=== PATIENT | male | born 1930 | race Caucasian/White ===

== ENCOUNTER 2017-03-17 19:56 | Outpatient (CLI) | payer MEDICARE, OTHER | END 2017-03-17 19:57 | disposition home or self-care (01) | DX: M54.5 Low back pain (principal); E03.9 Hypothyroidism, unspecified; E79.0 Hyperuricemia without signs of inflammatory arthritis and tophaceous disease; E23.0 Hypopituitarism; I10 Essential (primary) hypertension ==

== ENCOUNTER 2017-07-14 11:38 | Emergency (ER) | payer MEDICARE, OTHER ==
--- NOTE | 2017-07-14 12:43 | ED Physician Documentation ---
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 Last night without specific trauma developed severe pain and he points to the greater trochanter of the right hip as the source of the pain and when going up some stairs today developed a shooting pain down to the medial part of the thigh just above the knee and he has a lot of pain with leg lifting. There is no weakness, numbness, or tingling, no back pain per se. No fevers or urinary complaints.) Review of Systems Constitutional: denies: Fever, Chills Nose: denies: Rhinorrhea / runny nose, Congestion Cardiac: denies: Chest pain / pressure, Palpitations Respiratory: denies: Dyspnea, Cough GI: denies: Abdominal Pain PD PAST MEDICAL HISTORY - Past Medical History Cardiovascular: None Respiratory: None Neuro: Other Endocrine/Autoimmune: None, Other GI: GERD : Benign prostate hypertrophy HEENT: None Psych: None Musculoskeletal: Gout Derm: None Other Past Medical History: Pt has some pituitary deficiency - Past Surgical History Past Surgical History: Yes Ortho: Knee replacement, Spine surgery - Present Medications Home Medications: Ambulatory Orders Medication Instructions Recorded Confirmed HYDROcod/ACETAM 5/325 [[place] 5/325] 1 - 2 ea PO Q6H PRN #15 tablet 07/14/17 - Allergies Allergies/Adverse Reactions: Allergies Allergy/AdvReac Type Severity Reaction Status Date / Time Penicillins Allergy Edema Verified 07/14/17 11:58 - Social History Does the pt smoke?: No Smoking Status: Never smoker Does the pt drink ETOH?: Yes Does the pt have substance abuse?: No - Immunizations Immunizations are current?: Yes PD ED PE NORMAL - Vitals Vital signs reviewed: Yes - General General: Alert and oriented X 3, No acute distress - Abdomen Abdomen: Soft, Non tender - Back Back: Other (Small surgical incision from a L4-L5 laminectomy he says that was about 20-30 years ago. No spinal tenderness. The patient has equal and normal Achilles and patellar reflexes bilaterally. Normal sensation in all areas of the legs. Patient denies saddle anesthesia. Normal strength in flexion- extension at the ankles, knees, and flexion of the hips.) - Extremities Extremities: Other (He has some tenderness of the right thigh but none of the greater trochanter. He does not have any pain with internal or external rotation of the right hip. There is no rash consistent with shingles. He has a negative straight leg raise but has a lot of pain when actively lifting the right leg.) - Neuro Neuro: Alert and oriented X 3, Normal speech - Psych Psych: Normal mood, Normal affect Results - Vitals Vitals: Vital Signs - 24 hr 07/14/17 11:55 Temperature 36.4 C L Heart Rate 65 Respiratory 18 Rate Blood Pressure 128/75 O2 Saturation 99 Oxygen O2 Source Room air - Rads (name of study) Xrs R hip/femur Radiology: EMP read contemporaneously (Some mild degenerative changes of the right hip without acute disease) PD MEDICAL DECISION MAKING - ED course ED course: 87-year-old gentleman with chronic leg length discrepancy presents with more acute right hip pain without injury, seems tenderness on exam. There is no evidence of infection. X-rays negative except for some degenerative changes. Departure - Departure Disposition: 01 Home, Self Care Clinical Impression: Strain of hip Qualifiers: Encounter type: initial encounter Laterality: right Qualified Code(s): S76.011A - Strain of muscle, fascia and tendon of right hip, initial encounter Condition: Good Record reviewed to determine appropriate education?: Yes Instructions: ED Sprain Hip Follow-Up: [facility] [Provider Group] - Within 1 week Prescriptions: HYDROcod/ACETAM 5/325 [[place] 5/325] 1 - 2 ea PO Q6H PRN #15 tablet PRN Reason: Pain Comments: Do not drink or drive while taking narcotic pain medication. Note that many narcotic pain relievers also contain Tylenol/acetaminophen. Please ensure that your total dose of acetaminophen from all sources does not exceed 3 g (3000 mg) per day. You may get constipated while on this medication. Take a stool softener such as Colace twice a day while you are on it. Also add an [id number] laxative such as senna or MiraLAX on any day that you do not have a bowel movement. If you received a narcotic pain medication or sedative while in the emergency department, do not drive for the next 24 hours.
--- NOTE | 2017-07-14 14:52 | XRAY Report ---
EXAM: RIGHT HIP AND PELVIS RADIOGRAPHY EXAM DATE: 07/14/2017 02:37 PM. HISTORY: Atraumatic leg pain. COMPARISONS: None. TECHNIQUE: 1 view of the pelvis and 1 view of the hip. FINDINGS: Bones: Normal. No fracture or bone lesion. Joints: Mild bilateral superior hip joint space narrowing. Unremarkable SI joints and pubic symphysis . Degenerative changes in lower lumbar spine. Soft Tissues: Unremarkable. IMPRESSION: Mild degenerative changes. [facility] Referring Provider Line: [phone] SITE ID: [id number]
--- NOTE | 2017-07-14 14:54 | XRAY Preliminary Report ---
Exam: XR Femur 2V RT IMPRESSION: No acute disease. [facility] SITE ID: [id number]
--- NOTE | 2017-07-14 14:56 | XRAY Report ---
EXAM: RIGHT FEMUR RADIOGRAPHY EXAM DATE: 07/14/2017 02:37 PM. CLINICAL HISTORY: Atraumatic leg pain. COMPARISON: None. TECHNIQUE: 2 views. FINDINGS: Bones: Osteopenia. No definite fracture or other bone lesion. Joints: Minimal degenerative changes in the hip. Right total knee prosthesis in anatomic alignment. N o abnormal lucency associated with the prosthesis. Soft Tissues: Unremarkable. IMPRESSION: No acute disease. [facility] Referring Provider Line: [phone] SITE ID: [id number]
[2017-07-14 15:09] VITALS: BP 119/71
== END 2017-07-14 15:08 | disposition home or self-care (01) ==
LOC: ED 11:38
DX: S76.011A Strain of muscle, fascia and tendon of right hip, initial encounter (principal); X58.XXXA Exposure to other specified factors, initial encounter; M21.70 Unequal limb length (acquired), unspecified site; K21.9 Gastro-esophageal reflux disease without esophagitis; M10.9 Gout, unspecified
CPT/HCPCS: 99283

== ENCOUNTER 2017-07-19 23:47 | Outpatient (CLI) | payer MEDICARE, OTHER | END 2017-07-19 23:48 | disposition short-term general hospital (02) | LOC: EMS 23:47 | PROVIDERS: ATTEND Surgery | DX: M79.89 Other specified soft tissue disorders (principal) | CPT/HCPCS: A0425; A0429; A0888 ==

== ENCOUNTER 2017-08-02 09:51 | Outpatient (CLI) | payer MEDICARE, OTHER ==
[2017-08-02 10:20] LABS: BASOPHILS % (AUTO) 0.7 %; EOSINOPHILS # (AUTO) 0.1 10^3/uL (0.0-0.7); EOSINOPHILS % (AUTO) 1.7 %; HCT - HEMATOCRIT 45.5 % (42.0-52.0); HGB - HEMOGLOBIN 15.4 g/dL (14.0-18.0); LYMPHOCYTES # (AUTO) 1.1 10^3/uL (1.5-3.5); LYMPHOCYTES % (AUTO) 23.1 %; MEAN CORPUSCULAR HEMOGLOBIN 33.5 pg (27.0-31.0); MEAN CORPUSCULAR HGB CONC 33.8 g/dL (32.0-36.0); MEAN CORPUSCULAR VOLUME 99.1 fL (80.0-94.0); MEAN PLATELET VOLUME 9.2 fL (7.4-11.4); MONOCYTES # (AUTO) 0.6 10^3/uL (0.0-1.0); MONOCYTES % (AUTO) 12.2 %; NEUTROPHILS # (AUTO) 3.1 10^3/uL (1.5-6.6); NEUTROPHILS % (AUTO) 62.3 %; RED BLOOD COUNT 4.59 10^6/uL (4.70-6.10); RED CELL DISTRIBUTION WIDTH 13.9 % (12.0-15.0); UNCORRECTED WHITE BLOOD COUNT 4.9 x10^3/uL; WHITE BLOOD COUNT 4.9 x10^3/uL (4.8-10.8)
[2017-08-02 10:46] LABS: PLATELET ESTIMATE, MANUAL NORMAL (130-450,000) (NORMAL); PLATELET MORPHOLOGY 1+ GIANT PLATELETS (NORMAL)
== END 2017-08-02 09:52 | disposition home or self-care (01) ==
LOC: LAB 09:51
PROVIDERS: ATTEND Podiatrist
DX: M10.072 Idiopathic gout, left ankle and foot (principal); M79.672 Pain in left foot
CPT/HCPCS: 36415; 84550; 85025

== ENCOUNTER 2017-08-20 12:09 | Outpatient (CLI) | payer MEDICARE, OTHER | END 2017-08-20 12:10 | disposition home or self-care (01) | LOC: LAB.WCP 12:09 | PROVIDERS: ATTEND Internal Medicine Rheumatology | DX: M79.672 Pain in left foot (principal); M10.9 Gout, unspecified | CPT/HCPCS: 36415; 84550; 85651; 86200; 86430 ==

== ENCOUNTER 2017-12-25 09:35 | Outpatient (CLI) | payer MEDICARE, OTHER ==
[2017-12-25 13:28] LABS: BASOPHILS % (AUTO) 0.7 %; EOSINOPHILS # (AUTO) 0.2 10^3/uL (0.0-0.7); EOSINOPHILS % (AUTO) 2.6 %; HGB - HEMOGLOBIN 16.6 g/dL (14.0-18.0); LYMPHOCYTES # (AUTO) 1.6 10^3/uL (1.5-3.5); LYMPHOCYTES % (AUTO) 28.1 %; MEAN CORPUSCULAR HEMOGLOBIN 33.5 pg (27.0-31.0); MEAN CORPUSCULAR HGB CONC 33.9 g/dL (32.0-36.0); MEAN CORPUSCULAR VOLUME 98.9 fL (80.0-94.0); MEAN PLATELET VOLUME 10.3 fL (7.4-11.4); MONOCYTES # (AUTO) 0.7 10^3/uL (0.0-1.0); MONOCYTES % (AUTO) 12.8 %; NEUTROPHILS # (AUTO) 3.3 10^3/uL (1.5-6.6); NEUTROPHILS % (AUTO) 55.8 %; PLT - PLATELET COUNT 139 10^3/uL (130-450); RED BLOOD COUNT 4.95 10^6/uL (4.70-6.10); RED CELL DISTRIBUTION WIDTH 14.5 % (12.0-15.0); WHITE BLOOD COUNT 5.8 x10^3/uL (4.8-10.8)
[2017-12-25 13:32] LABS: ALBUMIN 3.7 g/dL (3.2-5.5); ALBUMIN/GLOBULIN RATIO 1.2 (1.0-2.2); ALKALINE PHOSPHATASE 58 IU/L (42-121); ALT ALANINE AMINOTRANSFERASE 26 IU/L (10-60); AST ASPARTATE AMINOTRANSFERASE 30 IU/L (10-42); BILIRUBIN,TOTAL 1.1 mg/dL (0.2-1.0); BUN - BLOOD UREA NITROGEN 16 mg/dL (6-20); CALCIUM 8.6 mg/dL (8.5-10.3); CARBON DIOXIDE - CO2 29 mmol/L (21-32); CHLORIDE 103 mmol/L (101-111); CREATININE 1.2 mg/dL (0.6-1.2); GFR - MDRD 57 (>89); GLUCOSE 89 mg/dL (70-100); SODIUM 140 mmol/L (135-145); TOTAL PROTEIN 6.7 g/dL (6.7-8.2)
[2017-12-25 13:58] LABS: PLATELET MORPHOLOGY RARE GIANT PLATELETS (NORMAL)
[2017-12-25 14:33] LABS: THYROID STIMULATING HORMONE < 0.08 uIU/mL (0.34-5.60)
[2017-12-25 14:38] LABS: PROLACTIN 0.59 ng/mL
[2017-12-25 15:18] LABS: FREE T4 (FREE THYROXINE) 1.45 ng/dL (0.58-1.64)
== END 2017-12-25 09:36 | disposition home or self-care (01) ==
LOC: LAB.WCP 09:35
PROVIDERS: ATTEND Family Medicine
DX: E23.0 Hypopituitarism (principal); E03.9 Hypothyroidism, unspecified
CPT/HCPCS: 36415; 80053; 84146; 84403; 84439; 84443; 85025

== ENCOUNTER 2018-05-08 09:37 | Outpatient (CLI) | payer MEDICARE, OTHER ==
[2018-05-08 13:50] LABS: ALBUMIN 2.9 g/dL (3.2-5.5); ALBUMIN/GLOBULIN RATIO 0.9 (1.0-2.2); BILIRUBIN,TOTAL 1.2 mg/dL (0.2-1.0); CALCIUM 8.1 mg/dL (8.5-10.3); CREATININE 1.3 mg/dL (0.6-1.2); TOTAL PROTEIN 6.3 g/dL (6.7-8.2)
== END 2018-05-08 09:38 | disposition home or self-care (01) ==
LOC: LAB.WCP 09:37
PROVIDERS: ATTEND Family Medicine
DX: E23.0 Hypopituitarism (principal); E22.1 Hyperprolactinemia
CPT/HCPCS: 36415; 80053

== ENCOUNTER 2018-07-08 10:08 | Outpatient (CLI) | payer MEDICARE, OTHER ==
[2018-07-08 12:23] LABS: BILIRUBIN,URINE NEGATIVE (NEGATIVE); GLUCOSE, URINE (UA) NEGATIVE (NEGATIVE); KETONES,URINE (UA) NEGATIVE (NEGATIVE); LEUKOCYTE ESTERASE, URINE NEGATIVE (NEGATIVE); NITRITE,URINE NEGATIVE (NEGATIVE); OCCULT BLOOD,URINE NEGATIVE (NEGATIVE); PROTEIN,URINE NEGATIVE (NEGATIVE); UROBILINOGEN,URINE 0.2 (NORMAL) E.U./dL (NORMAL)
[2018-07-08 12:27] LABS: BASOPHILS % (AUTO) 0.7 %; EOSINOPHILS % (AUTO) 0.8 %; HGB - HEMOGLOBIN 16.5 g/dL (14.0-18.0); LYMPHOCYTES % (AUTO) 15.5 %; MEAN CORPUSCULAR HEMOGLOBIN 34.5 pg (27.0-31.0); MEAN CORPUSCULAR HGB CONC 33.7 g/dL (32.0-36.0); MEAN CORPUSCULAR VOLUME 102.4 fL (80.0-94.0); MEAN PLATELET VOLUME 9.7 fL (7.4-11.4); MONOCYTES # (AUTO) 0.7 10^3/uL (0.0-1.0); MONOCYTES % (AUTO) 10.3 %; NEUTROPHILS # (AUTO) 4.7 10^3/uL (1.5-6.6); NEUTROPHILS % (AUTO) 72.7 %; PLT - PLATELET COUNT 174 10^3/uL (130-450); RED BLOOD COUNT 4.78 10^6/uL (4.70-6.10); RED CELL DISTRIBUTION WIDTH 14.8 % (12.0-15.0); WHITE BLOOD COUNT 6.4 x10^3/uL (4.8-10.8)
[2018-07-08 12:29] LABS: CREATININE,URINE 35.8 mg/dL; MICROALBUMIN,URINE 0.5 mg/dL (0-300.0)
[2018-07-08 12:36] LABS: CLARITY,URINE CLEAR (CLEAR)
[2018-07-08 12:59] LABS: BACTERIA,URINE None Seen /HPF (None Seen); RBC,URINE 0-5 /HPF (0-5); SQUAMOUS EPITHELIAL CELL,UR NONE SEEN (<= Few)
[2018-07-08 13:14] LABS: ALBUMIN 3.3 g/dL (3.2-5.5); ALKALINE PHOSPHATASE 70 IU/L (42-121); ALT ALANINE AMINOTRANSFERASE 22 IU/L (10-60); AST ASPARTATE AMINOTRANSFERASE 29 IU/L (10-42); BILIRUBIN,TOTAL 1.6 mg/dL (0.2-1.0); BUN - BLOOD UREA NITROGEN 17 mg/dL (6-20); CALCIUM 8.7 mg/dL (8.5-10.3); CARBON DIOXIDE - CO2 27 mmol/L (21-32); CHLORIDE 104 mmol/L (101-111); CHOL/HDL RATIO 2.5 (<5.0); CHOLESTEROL 104 mg/dL; CREATININE 1.3 mg/dL (0.6-1.2); GFR - MDRD 52 (>89); GLUCOSE 92 mg/dL (70-100); HDL CHOLESTEROL 41 mg/dL; LDL CHOLESTEROL,CALCULATED 54 mg/dL; LDL/HDL RATIO 1.3 (<3.6); SODIUM 141 mmol/L (135-145); TOTAL PROTEIN 6.5 g/dL (6.7-8.2); VLDL CHOLESTEROL 9 mg/dL
[2018-07-08 13:24] LABS: FREE T4 (FREE THYROXINE) 1.25 ng/dL (0.58-1.64)
[2018-07-08 13:27] LABS: PROLACTIN 7.57 ng/mL
[2018-07-08 14:47] LABS: PLATELET ESTIMATE, MANUAL NORMAL (130-450,000) (NORMAL); RBC MORPHOLOGY (MULTIPLE) NORMAL APPEARANCE (NORMAL)
== END 2018-07-08 10:09 | disposition home or self-care (01) ==
LOC: LAB.WCP 10:08
PROVIDERS: ATTEND Specialist
DX: E03.8 Other specified hypothyroidism (principal); E83.51 Hypocalcemia; R94.4 Abnormal results of kidney function studies; E22.1 Hyperprolactinemia; E23.0 Hypopituitarism
CPT/HCPCS: 36415; 80053; 80061; 81001; 81599; 82043; 82306; 82330; 82570; 83721; 83970; 84146; 84439; 85025; 87086

== ENCOUNTER 2018-07-31 13:50 | Outpatient (CLI) | payer MEDICARE, OTHER ==
[2018-07-31 18:58] LABS: BASOPHILS % (AUTO) 0.7 %; EOSINOPHILS % (AUTO) 0.2 %; HGB - HEMOGLOBIN 16.7 g/dL (14.0-18.0); LYMPHOCYTES # (AUTO) 0.6 10^3/uL (1.5-3.5); LYMPHOCYTES % (AUTO) 8.6 %; MEAN CORPUSCULAR HEMOGLOBIN 34.3 pg (27.0-31.0); MEAN CORPUSCULAR HGB CONC 33.6 g/dL (32.0-36.0); MEAN CORPUSCULAR VOLUME 101.9 fL (80.0-94.0); MONOCYTES # (AUTO) 0.5 10^3/uL (0.0-1.0); MONOCYTES % (AUTO) 6.7 %; NEUTROPHILS # (AUTO) 5.9 10^3/uL (1.5-6.6); NEUTROPHILS % (AUTO) 83.8 %; PLT - PLATELET COUNT 143 10^3/uL (130-450); RED BLOOD COUNT 4.86 10^6/uL (4.70-6.10); RED CELL DISTRIBUTION WIDTH 14.2 % (12.0-15.0); WHITE BLOOD COUNT 7.1 x10^3/uL (4.8-10.8)
[2018-07-31 19:03] LABS: ALBUMIN 3.6 g/dL (3.2-5.5); ALBUMIN/GLOBULIN RATIO 1.1 (1.0-2.2); ALKALINE PHOSPHATASE 81 IU/L (42-121); ALT ALANINE AMINOTRANSFERASE 19 IU/L (10-60); AST ASPARTATE AMINOTRANSFERASE 23 IU/L (10-42); BILIRUBIN,TOTAL 1.2 mg/dL (0.2-1.0); BUN - BLOOD UREA NITROGEN 21 mg/dL (6-20); CALCIUM 8.2 mg/dL (8.5-10.3); CARBON DIOXIDE - CO2 26 mmol/L (21-32); CHLORIDE 103 mmol/L (101-111); CREATININE 1.2 mg/dL (0.6-1.2); GFR - MDRD 57 (>89); GLUCOSE 112 mg/dL (70-100); SODIUM 134 mmol/L (135-145); TOTAL PROTEIN 6.8 g/dL (6.7-8.2); URIC ACID 3.7 mg/dL (2.6-7.2)
[2018-07-31 19:04] LABS: CRP - C-REACTIVE PROTEIN < 1.0 mg/dL (0-1.0)
[2018-07-31 19:28] LABS: PLATELET ESTIMATE, MANUAL NORMAL (130-450,000) (NORMAL); PLATELET MORPHOLOGY 1+ GIANT PLATELETS (NORMAL); RBC MORPHOLOGY (MULTIPLE) NORMAL APPEARANCE (NORMAL)
== END 2018-07-31 13:51 | disposition home or self-care (01) ==
LOC: LAB.WCP 13:50
PROVIDERS: ATTEND Family Medicine
DX: M10.9 Gout, unspecified (principal)
CPT/HCPCS: 36415; 80053; 84550; 85025; 85651; 86140

== ENCOUNTER 2018-08-21 13:42 | Outpatient (CLI) | payer MEDICARE, OTHER ==
[2018-08-21 19:12] LABS: RHEUMATOID FACTOR NEGATIVE (Negative)
[2018-08-24 18:31] LABS: ANA SCREEN NEGATIVE (NEGATIVE)
== END 2018-08-21 13:43 | disposition home or self-care (01) ==
LOC: LAB.WCP 13:42
PROVIDERS: ATTEND Internal Medicine Rheumatology
DX: M25.50 Pain in unspecified joint (principal)
CPT/HCPCS: 36415; 84550; 85651; 86038; 86200; 86430

== ENCOUNTER 2018-09-08 12:32 | Outpatient (CLI) | payer MEDICARE, OTHER ==
[2018-09-08 19:14] LABS: BASOPHILS % (AUTO) 0.3 %; HGB - HEMOGLOBIN 18.2 g/dL (14.0-18.0); LYMPHOCYTES # (AUTO) 0.6 10^3/uL (1.5-3.5); LYMPHOCYTES % (AUTO) 6.4 %; MEAN CORPUSCULAR HEMOGLOBIN 33.9 pg (27.0-31.0); MEAN CORPUSCULAR HGB CONC 32.7 g/dL (32.0-36.0); MEAN CORPUSCULAR VOLUME 103.8 fL (80.0-94.0); MEAN PLATELET VOLUME 11.5 fL (7.4-11.4); MONOCYTES # (AUTO) 0.8 10^3/uL (0.0-1.0); MONOCYTES % (AUTO) 8.4 %; NEUTROPHILS # (AUTO) 8.4 10^3/uL (1.5-6.6); NEUTROPHILS % (AUTO) 84.9 %; PLT - PLATELET COUNT 151 10^3/uL (130-450); RED BLOOD COUNT 5.36 10^6/uL (4.70-6.10); RED CELL DISTRIBUTION WIDTH 16.1 % (12.0-15.0); WHITE BLOOD COUNT 9.9 x10^3/uL (4.8-10.8)
[2018-09-08 19:21] LABS: ALBUMIN 3.8 g/dL (3.2-5.5); ALBUMIN/GLOBULIN RATIO 1.3 (1.0-2.2); BILIRUBIN,TOTAL 1.9 mg/dL (0.2-1.0); CALCIUM 8.5 mg/dL (8.5-10.3); CREATININE 1.4 mg/dL (0.6-1.2); TOTAL PROTEIN 6.8 g/dL (6.7-8.2)
[2018-09-08 19:30] LABS: FREE T4 (FREE THYROXINE) 1.08 ng/dL (0.58-1.64)
[2018-09-08 19:32] LABS: PROLACTIN 5.63 ng/mL
== END 2018-09-08 12:33 | disposition home or self-care (01) ==
LOC: LAB.WCP 12:32
PROVIDERS: ATTEND Specialist
DX: E23.0 Hypopituitarism (principal); E22.1 Hyperprolactinemia; R94.4 Abnormal results of kidney function studies
CPT/HCPCS: 36415; 80053; 81599; 84146; 84305; 84403; 84439; 85025

== ENCOUNTER 2018-10-28 10:30 | Outpatient (CLI) | payer MEDICARE, OTHER ==
[2018-10-28 20:00] LABS: BASOPHILS % (AUTO) 0.6 %; EOSINOPHILS # (AUTO) 0.1 10^3/uL (0.0-0.7); EOSINOPHILS % (AUTO) 1.2 %; HGB - HEMOGLOBIN 16.6 g/dL (14.0-18.0); LYMPHOCYTES # (AUTO) 0.9 10^3/uL (1.5-3.5); LYMPHOCYTES % (AUTO) 14.4 %; MEAN CORPUSCULAR HEMOGLOBIN 34.1 pg (27.0-31.0); MEAN CORPUSCULAR HGB CONC 32.3 g/dL (32.0-36.0); MEAN CORPUSCULAR VOLUME 105.7 fL (80.0-94.0); MEAN PLATELET VOLUME 10.2 fL (7.4-11.4); MONOCYTES # (AUTO) 0.8 10^3/uL (0.0-1.0); MONOCYTES % (AUTO) 13.1 %; NEUTROPHILS # (AUTO) 4.6 10^3/uL (1.5-6.6); NEUTROPHILS % (AUTO) 70.7 %; PLT - PLATELET COUNT 129 10^3/uL (130-450); RED BLOOD COUNT 4.86 10^6/uL (4.70-6.10); RED CELL DISTRIBUTION WIDTH 15.7 % (12.0-15.0); WHITE BLOOD COUNT 6.4 x10^3/uL (4.8-10.8)
[2018-10-28 20:40] LABS: ALBUMIN 3.6 g/dL (3.2-5.5); ALBUMIN/GLOBULIN RATIO 1.1 (1.0-2.2); BILIRUBIN,TOTAL 2.3 mg/dL (0.2-1.0); CALCIUM 8.5 mg/dL (8.5-10.3); CREATININE 1.1 mg/dL (0.6-1.2); CRP - C-REACTIVE PROTEIN 10.7 mg/dL (0-1.0); TOTAL PROTEIN 6.8 g/dL (6.7-8.2)
== END 2018-10-28 23:59 | disposition home or self-care (01) ==
LOC: LAB.WCP 10:30
PROVIDERS: ATTEND Physician Assistant Medical
DX: I48.0 Paroxysmal atrial fibrillation (principal); M06.4 Inflammatory polyarthropathy
CPT/HCPCS: 36415; 80053; 84443; 85025; 85651; 86140

== ENCOUNTER 2018-10-31 09:31 | Outpatient (CLI) | payer MEDICARE, OTHER | END 2018-10-31 09:32 | disposition home or self-care (01) | LOC: DI 09:31 | PROVIDERS: ATTEND Physician Assistant Medical | DX: I48.91 Unspecified atrial fibrillation (principal); I27.20 Pulmonary hypertension, unspecified; I35.0 Nonrheumatic aortic (valve) stenosis; I34.0 Nonrheumatic mitral (valve) insufficiency | CPT/HCPCS: 93306 ==

== ENCOUNTER 2018-11-11 11:10 | Outpatient (CLI) | payer MEDICARE, OTHER ==
[2018-11-11 18:58] LABS: CALCIUM 8.7 mg/dL (8.5-10.3)
== END 2018-11-11 23:59 | disposition home or self-care (01) ==
LOC: LAB.WCP 11:10
PROVIDERS: ATTEND Family Medicine
DX: I42.9 Cardiomyopathy, unspecified (principal)
CPT/HCPCS: 36415; 80048

== ENCOUNTER 2019-02-18 08:00 | Outpatient (CLI) | payer MEDICARE, OTHER ==
[2019-02-18 19:10] LABS: BASOPHILS % (AUTO) 0.6 %; EOSINOPHILS % (AUTO) 0.1 %; HGB - HEMOGLOBIN 15.9 g/dL (14.0-18.0); LYMPHOCYTES % (AUTO) 16.6 %; MEAN CORPUSCULAR HEMOGLOBIN 34.5 pg (27.0-31.0); MEAN CORPUSCULAR VOLUME 104.7 fL (80.0-94.0); MEAN PLATELET VOLUME 11.5 fL (7.4-11.4); MONOCYTES # (AUTO) 0.5 10^3/uL (0.0-1.0); MONOCYTES % (AUTO) 7.7 %; NEUTROPHILS # (AUTO) 4.6 10^3/uL (1.5-6.6); PLT - PLATELET COUNT 130 10^3/uL (130-450); RED BLOOD COUNT 4.59 10^6/uL (4.70-6.10); RED CELL DISTRIBUTION WIDTH 15.7 % (12.0-15.0); WHITE BLOOD COUNT 6.1 x10^3/uL (4.8-10.8)
[2019-02-18 19:24] LABS: PLATELET ESTIMATE, MANUAL NORMAL (130-450,000) (NORMAL); PLATELET MORPHOLOGY 1+ GIANT PLATELETS (NORMAL)
[2019-02-18 19:25] LABS: RBC MORPHOLOGY (MULTIPLE) 1+ MACROCYTOSIS (NORMAL)
[2019-02-18 19:39] LABS: ALBUMIN 3.5 g/dL (3.2-5.5); ALBUMIN/GLOBULIN RATIO 1.5 (1.0-2.2); ALKALINE PHOSPHATASE 62 IU/L (42-121); ALT ALANINE AMINOTRANSFERASE 26 IU/L (10-60); AST ASPARTATE AMINOTRANSFERASE 32 IU/L (10-42); BILIRUBIN,TOTAL 1.8 mg/dL (0.2-1.0); BUN - BLOOD UREA NITROGEN 25 mg/dL (6-20); CALCIUM 8.5 mg/dL (8.5-10.3); CARBON DIOXIDE - CO2 28 mmol/L (21-32); CHLORIDE 101 mmol/L (101-111); CHOL/HDL RATIO 2.5 (<5.0); CHOLESTEROL 106 mg/dL; CREATININE 1.3 mg/dL (0.6-1.2); FREE T4 (FREE THYROXINE) 1.97 ng/dL (0.58-1.64); GFR - MDRD 52 (>89); GLUCOSE 135 mg/dL (70-100); HDL CHOLESTEROL 43 mg/dL; SODIUM 137 mmol/L (135-145); TOTAL PROTEIN 5.8 g/dL (6.7-8.2)
[2019-02-18 19:42] LABS: PROLACTIN 4.04 ng/mL
[2019-02-18 20:01] LABS: LDL CHOLESTEROL,DIRECT 56 mg/dL; LDLD/HDL RATIO 1.3 (<3.6)
[2019-02-18 20:02] LABS: HB2 TOTAL 17.1 g/dL; HEMOGLOBIN A1C 0.67 g/dL; HEMOGLOBIN A1C % 5.7 % (4.6-6.2)
== END 2019-02-18 23:59 | disposition home or self-care (01) ==
LOC: LAB.WCP 08:00
PROVIDERS: ATTEND Specialist
DX: E22.1 Hyperprolactinemia (principal); E03.8 Other specified hypothyroidism; E29.1 Testicular hypofunction; E23.0 Hypopituitarism; R94.4 Abnormal results of kidney function studies; N28.9 Disorder of kidney and ureter, unspecified
CPT/HCPCS: 36415; 80053; 80061; 81599; 83036; 83721; 84146; 84305; 84403; 84439; 85025

== ENCOUNTER 2019-02-26 08:00 | Outpatient (CLI) | payer MEDICARE, OTHER ==
[2019-02-26 18:39] LABS: BASOPHILS % (AUTO) 0.5 %; EOSINOPHILS % (AUTO) 0.2 %; HGB - HEMOGLOBIN 15.6 g/dL (14.0-18.0); LYMPHOCYTES # (AUTO) 0.7 10^3/uL (1.5-3.5); LYMPHOCYTES % (AUTO) 9.6 %; MEAN CORPUSCULAR HEMOGLOBIN 35.6 pg (27.0-31.0); MEAN CORPUSCULAR HGB CONC 34.1 g/dL (32.0-36.0); MEAN CORPUSCULAR VOLUME 104.4 fL (80.0-94.0); MEAN PLATELET VOLUME 10.8 fL (7.4-11.4); MONOCYTES # (AUTO) 0.7 10^3/uL (0.0-1.0); MONOCYTES % (AUTO) 9.3 %; NEUTROPHILS # (AUTO) 6.3 10^3/uL (1.5-6.6); NEUTROPHILS % (AUTO) 80.4 %; PLT - PLATELET COUNT 140 10^3/uL (130-450); RED BLOOD COUNT 4.39 10^6/uL (4.70-6.10); RED CELL DISTRIBUTION WIDTH 16.3 % (12.0-15.0); WHITE BLOOD COUNT 7.8 x10^3/uL (4.8-10.8)
[2019-02-26 18:54] LABS: CALCIUM 8.3 mg/dL (8.5-10.3); CREATININE 1.1 mg/dL (0.6-1.2)
== END 2019-02-26 23:59 | disposition home or self-care (01) ==
LOC: LAB.WCP 08:00
PROVIDERS: ATTEND Family Medicine
DX: M79.81 Nontraumatic hematoma of soft tissue (principal); R60.9 Edema, unspecified
CPT/HCPCS: 36415; 80048; 85025

== ENCOUNTER 2019-03-10 13:36 | Outpatient (CLI) | payer MEDICARE, OTHER ==
[2019-03-10 19:41] LABS: BASOPHILS % (AUTO) 0.4 %; EOSINOPHILS % (AUTO) 0.2 %; HGB - HEMOGLOBIN 15.4 g/dL (14.0-18.0); LYMPHOCYTES # (AUTO) 0.8 10^3/uL (1.5-3.5); MEAN CORPUSCULAR HEMOGLOBIN 35.4 pg (27.0-31.0); MEAN CORPUSCULAR HGB CONC 32.8 g/dL (32.0-36.0); MEAN PLATELET VOLUME 11.1 fL (7.4-11.4); MONOCYTES # (AUTO) 0.6 10^3/uL (0.0-1.0); NEUTROPHILS # (AUTO) 4.9 10^3/uL (1.5-6.6); NEUTROPHILS % (AUTO) 76.4 %; PLT - PLATELET COUNT 118 10^3/uL (130-450); RED BLOOD COUNT 4.34 10^6/uL (4.70-6.10); RED CELL DISTRIBUTION WIDTH 16.8 % (12.0-15.0); WHITE BLOOD COUNT 6.4 x10^3/uL (4.8-10.8)
[2019-03-10 19:58] LABS: PLATELET MORPHOLOGY NORMAL APPEARANCE (NORMAL)
[2019-03-10 19:59] LABS: PLATELET ESTIMATE, MANUAL DECREASED (<130,000) (NORMAL)
[2019-03-10 20:23] LABS: CALCIUM 8.5 mg/dL (8.5-10.3); CREATININE 1.6 mg/dL (0.6-1.2)
== END 2019-03-10 13:37 | disposition home or self-care (01) ==
LOC: LAB.WCP 13:36
PROVIDERS: ATTEND Family Medicine
DX: R06.9 Unspecified abnormalities of breathing (principal); M79.81 Nontraumatic hematoma of soft tissue
CPT/HCPCS: 36415; 80048; 85025

== ENCOUNTER 2019-04-26 08:00 | Outpatient (CLI) | payer MEDICARE, OTHER ==
[2019-04-26 18:45] LABS: BILIRUBIN,URINE NEGATIVE (NEGATIVE); GLUCOSE, URINE (UA) NEGATIVE (NEGATIVE); KETONES,URINE (UA) NEGATIVE (NEGATIVE); LEUKOCYTE ESTERASE, URINE NEGATIVE (NEGATIVE); NITRITE,URINE NEGATIVE (NEGATIVE); OCCULT BLOOD,URINE NEGATIVE (NEGATIVE); PROTEIN,URINE NEGATIVE (NEGATIVE); UROBILINOGEN,URINE 0.2 (NORMAL) E.U./dL (NORMAL)
[2019-04-26 19:01] LABS: BACTERIA,URINE None Seen /HPF (None Seen); CLARITY,URINE CLEAR (CLEAR); RBC,URINE None Seen /HPF (0-5); SQUAMOUS EPITHELIAL CELL,UR NONE SEEN (<= Few)
[2019-04-26 19:05] LABS: ALBUMIN 3.9 g/dL (3.2-5.5); ALBUMIN/GLOBULIN RATIO 1.3 (1.0-2.2); BILIRUBIN,TOTAL 1.4 mg/dL (0.2-1.0); CALCIUM 9.1 mg/dL (8.5-10.3); CREATININE 1.3 mg/dL (0.6-1.2); TOTAL PROTEIN 6.9 g/dL (6.7-8.2)
[2019-04-26 19:21] LABS: THYROID STIMULATING HORMONE < 0.08 uIU/mL (0.34-5.60)
[2019-04-26 19:23] LABS: FREE T4 (FREE THYROXINE) 2.01 ng/dL (0.58-1.64)
[2019-04-26 19:42] LABS: HB2 TOTAL 18.4 g/dL; HEMOGLOBIN A1C 0.64 g/dL; HEMOGLOBIN A1C % 5.3 % (4.6-6.2)
== END 2019-04-26 23:59 | disposition home or self-care (01) ==
LOC: LAB.WCP 08:00
PROVIDERS: ATTEND Specialist
DX: R94.4 Abnormal results of kidney function studies (principal); E03.8 Other specified hypothyroidism; D35.2 Benign neoplasm of pituitary gland; E22.1 Hyperprolactinemia; E23.0 Hypopituitarism
CPT/HCPCS: 36415; 80053; 81001; 83036; 84439; 84443; 87086

== ENCOUNTER 2019-04-29 11:06 | Outpatient (CLI) | payer MEDICARE, OTHER ==
[2019-04-29 19:25] LABS: CALCIUM 8.8 mg/dL (8.5-10.3); CREATININE 1.1 mg/dL (0.6-1.2)
[2019-04-29 19:26] LABS: INR 1.9 (0.8-1.2); PT - PROTHROMBIN TIME 21.1 secs (9.9-12.6)
[2019-04-29 19:28] LABS: BASOPHILS % (AUTO) 0.7 %; EOSINOPHILS % (AUTO) 0.6 %; HGB - HEMOGLOBIN 17.2 g/dL (14.0-18.0); LYMPHOCYTES # (AUTO) 0.7 10^3/uL (1.5-3.5); MEAN CORPUSCULAR HEMOGLOBIN 35.3 pg (27.0-31.0); MEAN CORPUSCULAR HGB CONC 33.1 g/dL (32.0-36.0); MEAN CORPUSCULAR VOLUME 106.6 fL (80.0-94.0); MEAN PLATELET VOLUME 10.8 fL (7.4-11.4); MONOCYTES # (AUTO) 0.5 10^3/uL (0.0-1.0); MONOCYTES % (AUTO) 11.7 %; NEUTROPHILS # (AUTO) 3.3 10^3/uL (1.5-6.6); PLT - PLATELET COUNT 120 10^3/uL (130-450); RED BLOOD COUNT 4.88 10^6/uL (4.70-6.10); RED CELL DISTRIBUTION WIDTH 14.4 % (12.0-15.0); WHITE BLOOD COUNT 4.6 x10^3/uL (4.8-10.8)
[2019-04-29 20:10] LABS: PLATELET ESTIMATE, MANUAL DECREASED (<130,000) (NORMAL); PLATELET MORPHOLOGY 1+ LARGE PLATELETS (NORMAL); RBC MORPHOLOGY (MULTIPLE) NORMAL APPEARANCE (NORMAL)
== END 2019-04-29 11:07 | disposition home or self-care (01) ==
LOC: LAB.WCP 11:06
PROVIDERS: ATTEND Family Medicine
DX: I48.91 Unspecified atrial fibrillation (principal); I42.9 Cardiomyopathy, unspecified; E23.0 Hypopituitarism; D86.0 Sarcoidosis of lung
CPT/HCPCS: 36415; 80048; 85025; 85610

== ENCOUNTER 2019-08-23 08:00 | Outpatient (CLI) | payer MEDICARE, OTHER ==
[2019-08-23 12:25] LABS: BASOPHILS # (AUTO) 0.1 10^3/uL (0.0-0.1); BASOPHILS % (AUTO) 1.3 %; EOSINOPHILS # (AUTO) 0.1 10^3/uL (0.0-0.7); EOSINOPHILS % (AUTO) 2.2 %; HGB - HEMOGLOBIN 15.5 g/dL (14.0-18.0); LYMPHOCYTES # (AUTO) 1.3 10^3/uL (1.5-3.5); LYMPHOCYTES % (AUTO) 28.8 %; MEAN CORPUSCULAR HEMOGLOBIN 33.7 pg (27.0-31.0); MEAN CORPUSCULAR HGB CONC 31.5 g/dL (32.0-36.0); MEAN PLATELET VOLUME 12.5 fL (7.4-11.4); MONOCYTES # (AUTO) 0.7 10^3/uL (0.0-1.0); MONOCYTES % (AUTO) 14.4 %; NEUTROPHILS # (AUTO) 2.4 10^3/uL (1.5-6.6); NEUTROPHILS % (AUTO) 53.1 %; PLT - PLATELET COUNT 137 10^3/uL (130-450); WHITE BLOOD COUNT 4.5 x10^3/uL (4.8-10.8)
[2019-08-23 13:39] LABS: ALBUMIN 3.3 g/dL (3.2-5.5); ALBUMIN/GLOBULIN RATIO 1.1 (1.0-2.2); ALKALINE PHOSPHATASE 76 IU/L (42-121); ALT ALANINE AMINOTRANSFERASE 31 IU/L (10-60); AST ASPARTATE AMINOTRANSFERASE 41 IU/L (10-42); BILIRUBIN,TOTAL 1.7 mg/dL (0.2-1.0); BUN - BLOOD UREA NITROGEN 23 mg/dL (6-20); CALCIUM 8.5 mg/dL (8.5-10.3); CARBON DIOXIDE - CO2 29 mmol/L (21-32); CHLORIDE 106 mmol/L (101-111); CHOL/HDL RATIO 2.1 (<5.0); CHOLESTEROL 119 mg/dL; CREATININE 1.2 mg/dL (0.6-1.2); GFR - MDRD 57 (>89); GLUCOSE 88 mg/dL (70-100); HDL CHOLESTEROL 58 mg/dL; LDL CHOLESTEROL,CALCULATED 50 mg/dL; LDL/HDL RATIO 0.9 (<3.6); SODIUM 141 mmol/L (135-145); TOTAL PROTEIN 6.2 g/dL (6.7-8.2); VLDL CHOLESTEROL 11 mg/dL
[2019-08-23 13:41] LABS: FREE T4 (FREE THYROXINE) 1.84 ng/dL (0.58-1.64)
== END 2019-08-23 23:59 | disposition home or self-care (01) ==
LOC: LAB.WCP 08:00
PROVIDERS: ATTEND Family Medicine
DX: R60.9 Edema, unspecified (principal); I42.9 Cardiomyopathy, unspecified; I48.91 Unspecified atrial fibrillation; E23.0 Hypopituitarism
CPT/HCPCS: 36415; 80053; 80061; 83721; 84439; 84443; 85025

== ENCOUNTER 2019-10-21 08:00 | Outpatient (CLI) | payer MEDICARE, OTHER ==
[2019-10-21 18:45] LABS: BASOPHILS # (AUTO) 0.1 10^3/uL (0.0-0.1); BASOPHILS % (AUTO) 1.1 %; EOSINOPHILS # (AUTO) 0.2 10^3/uL (0.0-0.7); EOSINOPHILS % (AUTO) 3.4 %; HGB - HEMOGLOBIN 14.9 g/dL (14.0-18.0); LYMPHOCYTES # (AUTO) 0.8 10^3/uL (1.5-3.5); LYMPHOCYTES % (AUTO) 12.4 %; MEAN CORPUSCULAR HEMOGLOBIN 34.4 pg (27.0-31.0); MEAN CORPUSCULAR HGB CONC 32.2 g/dL (32.0-36.0); MEAN CORPUSCULAR VOLUME 106.9 fL (80.0-94.0); MEAN PLATELET VOLUME 13.4 fL (7.4-11.4); MONOCYTES # (AUTO) 0.8 10^3/uL (0.0-1.0); NEUTROPHILS # (AUTO) 4.4 10^3/uL (1.5-6.6); NEUTROPHILS % (AUTO) 70.6 %; PLT - PLATELET COUNT 146 10^3/uL (130-450); RED BLOOD COUNT 4.33 10^6/uL (4.70-6.10); RED CELL DISTRIBUTION WIDTH 13.8 % (12.0-15.0); WHITE BLOOD COUNT 6.2 x10^3/uL (4.8-10.8)
[2019-10-21 19:04] LABS: ALBUMIN 3.3 g/dL (3.2-5.5); ALBUMIN/GLOBULIN RATIO 1.3 (1.0-2.2); BILIRUBIN,TOTAL 0.8 mg/dL (0.2-1.0); CALCIUM 8.4 mg/dL (8.5-10.3); CREATININE 1.3 mg/dL (0.6-1.2); TOTAL PROTEIN 5.8 g/dL (6.7-8.2); URIC ACID 3.7 mg/dL (2.6-7.2)
== END 2019-10-21 23:59 | disposition home or self-care (01) ==
LOC: LAB.WCP 08:00
PROVIDERS: ATTEND Family Medicine
DX: I42.9 Cardiomyopathy, unspecified (principal); I48.91 Unspecified atrial fibrillation; E23.0 Hypopituitarism; E79.0 Hyperuricemia without signs of inflammatory arthritis and tophaceous disease
CPT/HCPCS: 36415; 80053; 84439; 84550; 85025

== ENCOUNTER 2020-01-28 08:00 | Outpatient (CLI) | payer MEDICARE, OTHER ==
[2020-01-28 18:27] LABS: BASOPHILS # (AUTO) 0.1 10^3/uL (0.0-0.1); BASOPHILS % (AUTO) 1.1 %; EOSINOPHILS % (AUTO) 15.9 %; HGB - HEMOGLOBIN 15.1 g/dL (14.0-18.0); LYMPHOCYTES # (AUTO) 0.7 10^3/uL (1.5-3.5); LYMPHOCYTES % (AUTO) 11.2 %; MEAN CORPUSCULAR HEMOGLOBIN 33.9 pg (27.0-31.0); MEAN CORPUSCULAR HGB CONC 32.2 g/dL (32.0-36.0); MEAN CORPUSCULAR VOLUME 105.4 fL (80.0-94.0); MONOCYTES # (AUTO) 0.5 10^3/uL (0.0-1.0); NEUTROPHILS # (AUTO) 4.2 10^3/uL (1.5-6.6); NEUTROPHILS % (AUTO) 63.5 %; PLT - PLATELET COUNT 145 10^3/uL (130-450); RED BLOOD COUNT 4.45 10^6/uL (4.70-6.10); RED CELL DISTRIBUTION WIDTH 14.7 % (12.0-15.0); WHITE BLOOD COUNT 6.5 x10^3/uL (4.8-10.8)
[2020-01-28 18:56] LABS: ALBUMIN 3.7 g/dL (3.2-5.5); ALBUMIN/GLOBULIN RATIO 1.4 (1.0-2.2); BILIRUBIN,TOTAL 1.4 mg/dL (0.2-1.0); CALCIUM 8.4 mg/dL (8.5-10.3); CREATININE 1.5 mg/dL (0.6-1.2); TOTAL PROTEIN 6.3 g/dL (6.7-8.2)
== END 2020-01-28 23:59 | disposition home or self-care (01) ==
LOC: LAB.WCP 08:00
PROVIDERS: ATTEND Family Medicine
DX: R06.09 Other forms of dyspnea (principal); K74.60 Unspecified cirrhosis of liver; R60.9 Edema, unspecified; I42.9 Cardiomyopathy, unspecified; I48.91 Unspecified atrial fibrillation
CPT/HCPCS: 36415; 80053; 83880; 85025

== ENCOUNTER 2020-03-15 08:00 | Outpatient (CLI) | payer MEDICARE, OTHER ==
[2020-03-15 17:50] LABS: BASOPHILS # (AUTO) 0.1 10^3/uL (0.0-0.1); BASOPHILS % (AUTO) 1.2 %; EOSINOPHILS # (AUTO) 0.1 10^3/uL (0.0-0.7); EOSINOPHILS % (AUTO) 1.8 %; HGB - HEMOGLOBIN 13.6 g/dL (14.0-18.0); LYMPHOCYTES # (AUTO) 1.5 10^3/uL (1.5-3.5); LYMPHOCYTES % (AUTO) 30.3 %; MEAN CORPUSCULAR HEMOGLOBIN 34.6 pg (27.0-31.0); MEAN CORPUSCULAR HGB CONC 32.7 g/dL (32.0-36.0); MEAN CORPUSCULAR VOLUME 105.9 fL (80.0-94.0); MEAN PLATELET VOLUME 13.2 fL (7.4-11.4); MONOCYTES # (AUTO) 0.5 10^3/uL (0.0-1.0); MONOCYTES % (AUTO) 10.4 %; NEUTROPHILS # (AUTO) 2.7 10^3/uL (1.5-6.6); NEUTROPHILS % (AUTO) 55.9 %; PLT - PLATELET COUNT 151 10^3/uL (130-450); RED BLOOD COUNT 3.93 10^6/uL (4.70-6.10); RED CELL DISTRIBUTION WIDTH 15.2 % (12.0-15.0); WHITE BLOOD COUNT 4.9 x10^3/uL (4.8-10.8)
[2020-03-15 18:07] LABS: ALBUMIN 3.5 g/dL (3.2-5.5); ALBUMIN/GLOBULIN RATIO 1.5 (1.0-2.2); BILIRUBIN,TOTAL 1.4 mg/dL (0.2-1.0); CALCIUM 8.3 mg/dL (8.5-10.3); CREATININE 1.7 mg/dL (0.6-1.2); TOTAL PROTEIN 5.9 g/dL (6.7-8.2)
== END 2020-03-15 23:59 | disposition home or self-care (01) ==
LOC: LAB.WCP 08:00
PROVIDERS: ATTEND Family Medicine
DX: N18.3 Chronic kidney disease, stage 3 (moderate) (principal); R06.09 Other forms of dyspnea; K74.60 Unspecified cirrhosis of liver; I80.3 Phlebitis and thrombophlebitis of lower extremities, unspecified
CPT/HCPCS: 36415; 80053; 83880; 85025

== ENCOUNTER 2020-03-21 14:13 | Outpatient (CLI) | payer MEDICARE, OTHER ==
--- NOTE | 2020-03-22 03:35 | Ultrasound Report ---
Reason: THROMBOPHLEBITIS OF LEG Procedure Date: 03/21/2020 Accession Number: [id number] / [id number] Procedure: US - Duplex Venous Limited CPT Code: Final Report FULL RESULT: EXAM: RIGHT LOWER EXTREMITY VENOUS ULTRASOUND EXAM DATE: 03/21/2020 02:50 PM. CLINICAL HISTORY: THROMBOPHLEBITIS OF LEG. COMPARISON: None. TECHNIQUE: Real-time sonographic vascular imaging was performed by the ethanol maintenance mechanic through the lower extremity utilizing both color-flow and Doppler spectral analysis. Multiple food service representative static images were saved for review. FINDINGS: Common Femoral Vein (CFV): Normal. CFV-GSV Junction: Normal. Profunda Femoral Vein (PFV): Normal. Femoral Vein (FV) Prox: Normal. Femoral Vein (FV) Mid: Normal. Femoral Vein (FV) Dist: Normal. Popliteal Vein: Normal. Posterior Tibial Veins: Normal. Peroneal Veins: Normal. Contralateral Side CFV: Normal. Other: Subcutaneous edema in the calf. IMPRESSION: No evidence for deep venous thrombosis. [facility]
== END 2020-03-21 14:14 | disposition home or self-care (01) ==
LOC: DI 14:13
PROVIDERS: ATTEND Family Medicine
DX: I80.3 Phlebitis and thrombophlebitis of lower extremities, unspecified (principal)
CPT/HCPCS: 93971

== ENCOUNTER 2020-05-05 09:40 | Outpatient (CLI) | payer MEDICARE, OTHER | END 2020-05-05 09:41 | disposition short-term general hospital (02) | LOC: EMS 09:40 | PROVIDERS: ATTEND Surgery | DX: M25.561 Pain in right knee (principal); W18.39XA Other fall on same level, initial encounter; Y92.002 Bathroom of unspecified non-institutional (private) residence as the place of occurrence of the external cause | CPT/HCPCS: A0425; A0429 ==

== ENCOUNTER 2020-05-08 11:15 | Outpatient (CLI) | payer MEDICARE, OTHER | END 2020-05-08 11:16 | disposition short-term general hospital (02) | LOC: EMS 11:15 | PROVIDERS: ATTEND Surgery | DX: R42 Dizziness and giddiness (principal); R53.83 Other fatigue; R53.1 Weakness; M25.561 Pain in right knee | CPT/HCPCS: A0425; A0427 ==

== ENCOUNTER 2020-06-06 14:47 | Outpatient (CLI) | payer MEDICARE, OTHER ==
--- NOTE | 2020-06-06 15:53 | SLEEP CARE CONSULTATION ---
Information from patient questionnaire entered by Kristel Hay. I have reviewed and concur with the information entered by Kristel Hay. This document represents the service I personally performed and the decisions made by me, An Guidry ARNP. History of Present Illness Service Date and Time: 06/06/2020 1447 Reason for Visit: New patient Chief Complaint: reports: Unrefreshed sleep, Observed pauses in breathing, Fatigue, Frequent awakenings at night. denies: Insomnia, Snoring, Excessive daytime sleepiness Duration of Symptoms: 6-8 years Usual bedtime: 11 pm Time it takes to fall asleep: 5 minutes Snores at night: Yes Observed to quit breathing while asleep: Yes Sleeps alone due to snoring: No Number of times waking at night: 4-5 Reasons for waking at night: reports: Choking, Gasping for air, Bathroom (3-4 times), Other (IBS, gas in stomach and urine problems). denies: Snoring, Pain Toss, Turn, or Twitch while sleeping: No Recalls having dreams: Yes Usually gets out of bed at: 8-9 am Feels refreshed in the morning: Yes (sometimes) Morning headache: No Sleepy or fatigued during the day: Yes Ever fallen asleep while driving: No Takes day naps: No Dreams during day naps: No Prior sleep studies: No Additional HPI information: He has a 10 year history of dizziness and recently found to have reduced oxygen saturations. He has a history of a pacemaker and blood clots. His 2 weeks ago of a heart attack. - Parasomnia Symptoms Ever been unable to move upon waking from sleep: No Walks in sleep: No Talks in sleep: No Ever acted out dreams in sleep: Yes (his said he moved a lot during dreams) Ever felt weak in the knees when startled or emotional: Yes (maybe) Bothered by creepy, crawly, restless sensations in legs: Yes (sometimes) Problems with memory or concentration: Yes Subjective Initial [place] Sleepiness Scale score: 4 (in 2019) Past Medical History Past Medical History: reports: Hypertension, Congestive Heart Failure, Stroke (3-4 months ago, may have had a TIA, dizziness), Arthritis, Gout, Arrythmia, Impotence, Other (polmonary parcordosis, Brain Tumor(piruitary); blood clots). denies: Dysphagia, Claustrophobia, Hypothyroidism, Anxiety, Depression, Mood disorder, GERD Social History The patient's occupation is retired. Patient is and lives in [place]. Have you smoked in the past 12 months: No Alcohol use: Yes Alcohol amount and frequency: 2 drinks daily Caffeine use: No Family History Family history of sleep disordered breathing: Yes (son, treated) Allergies and Home Medications Drug allergies reviewed: Yes (Penicillin) Home medication list reviewed: Yes (see list) Review of Systems Weight loss over past 5 years: 12 Cardiovascular: reports: high blood pressure, irregular heart rate or pulse, leg or foot swelling. denies: palpitations, chest pain, have to sleep sitting up Respiratory: reports: shortness of breath. denies: chronic cough Gastrointestinal: reports: diarrhea, other (IBS). denies: heartburn, difficulty swallowing Urinary: reports: incontinence, frequency, urgency, impotence Neurological: reports: disorientation, speech dysfunction, gait or balance problems, fainting or unconsciousness, other (pain between shoulders 4-5 pm daily). denies: headaches, seizure, head trauma Psychiatric: denies: anxiety, depression Ear/Nose/Throat: reports: sinus problems, dry mouth/throat, tonsillectomy, wisdom teeth removed. denies: nasal congestion, nose bleeds, injury to nose Endocrine: reports: sluggishness, increased urination, unexplained weakness. denies: thyroid disease, too hot or cold, excessive thirst, increased appetite Musculoskeletal: reports: neck pain, back pain, mobility problems Immunologic: reports: sneezing, rash (arms), itching (back) Physical Exam Heart Rate: 59 O2 Saturation: 92 Height: 6 ft 2 in Weight: 220 lb Body Mass Index: 28.2 BMI Classification: Overweight Neck circumference: 16 (inches) HEENT: No craniofacial malformation Nostrils: patent to airflow Turbinates: normal Septum: midline Mouth and throat: normal Soft palate: normal Hard palate: normal Uvula: normal Uvula visualization: 100% Mallampati Class I Tongue: normal in size Tonsils: absent bilaterally Chin and jaw: normal size and position Neck: normal w/o lymphadenopathy or thyromegaly Heart: regular rate and rhythm (cyril) Lungs: clear bilaterally Impression and Plan 1. Suspected Obstructive Sleep Apnea-Hypopnea Syndrome, as suggested by a history of observed cessation of breath while asleep, gasping or choking in sleep as seen by his late (they did not wake him up), frequent awakening during the night with some episodes attributable to IBS/urination issues, unrefreshed sleep on average most days, and cognitive impairment. Narrow oropharynx and obesity are common predisposing factors for obstructive sleep apnea-hypopnea syndrome. Patient has a significant history of hypertension, pacemaker, blood clots and years of dizziness. Recently, he was observed having pauses of breathing with low oxygen saturations when being transported to the hospital due to falling again due to dizziness and other heart issues. He does have a son who is treated with a nightly breathing machine. I recommend proceeding to polysomnography to confirm the diagnosis and to assess severity. If the patient has significant sleep disordered breathing, a manual CPAP titration study will also be performed to find the optimal treatment pressure. I informed the patient of what the sleep studies involve and after some discussion, obtained agreement to proceed. The pathophysiology of obstructive sleep apnea-hypopnea syndrome was discussed with the patient and health risks of cardiovascular and cerebrovascular disease if not treated. AASM brochure for obstructive sleep apnea-hypopnea syndrome given and reviewed. Patient agreed to plan. * Schedule polysomnography +- manual CPAP titration study and return in 1-2 weeks after the study to discuss result and initiate therapy. * Attempt to lose weight. * Review instructions provided by trained office staff on how to prepare for the sleep study. * Return for follow-up after sleep study completed. Time Spent with Patient (minutes): 38
== END 2020-06-06 14:48 | disposition home or self-care (01) ==
LOC: SC 14:47
PROVIDERS: ATTEND Nurse Practitioner Family
DX: G47.8 Other sleep disorders (principal); R06.81 Apnea, not elsewhere classified; R41.89 Other symptoms and signs involving cognitive functions and awareness; I10 Essential (primary) hypertension; R42 Dizziness and giddiness; Z95.0 Presence of cardiac pacemaker; E66.3 Overweight; Z68.28 Body mass index [BMI] 28.0-28.9, adult
CPT/HCPCS: 99204; G0463; 99212

== ENCOUNTER 2020-07-07 04:01 | Outpatient (CLI) | payer MEDICARE, OTHER | END 2020-07-07 04:02 | disposition short-term general hospital (02) | LOC: EMS 04:01 | PROVIDERS: ATTEND Surgery | DX: M54.5 Low back pain (principal); R19.8 Other specified symptoms and signs involving the digestive system and abdomen; R10.30 Lower abdominal pain, unspecified | CPT/HCPCS: A0425; A0427 ==